=== PATIENT | male | born 1970 | race Two or more races ===

== ENCOUNTER 2017-03-16 13:05 | Emergency (ER) | payer SELFPAY | END 2017-03-18 15:46 | disposition left against medical advice (07) | LOC: CED 13:05 | DX: Z53.21 Procedure and treatment not carried out due to patient leaving prior to being seen by health care provider (principal) ==

== ENCOUNTER 2017-03-16 17:05 | Emergency (ER) | payer SELFPAY | END 2017-03-16 18:00 | disposition home or self-care (01) | LOC: CED 17:05 | DX: I10 Essential (primary) hypertension (principal); F17.200 Nicotine dependence, unspecified, uncomplicated | CPT/HCPCS: 99283 ==

== ENCOUNTER 2017-03-28 15:50 | Emergency (ER) | payer SELFPAY ==
[~2017-03-28] VITALS: Ht 180.3 cm; Wt 68.0 kg
== END 2017-03-28 16:20 | disposition home or self-care (01) ==
LOC: CED 15:50
DX: Z53.21 Procedure and treatment not carried out due to patient leaving prior to being seen by health care provider (principal)